=== PATIENT | female | born 2005 | race Caucasian/White ===

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

== ENCOUNTER 2025-03-03 17:23 | Emergency (ER) | payer OTHER, SELFPAY ==
--- NOTE | ~2025-03-03 | CT_ITS ---
EXAMINATION: CT abdomen pelvis w con DATE: 03/03/2025 21:34 INDICATION: L flank pain TECHNIQUE: Computed tomography (CT) of the abdomen and pelvis was performed with 100 mL Omnipaque-350 intravenous contrast. Automated exposure control and iterative reconstruction technique were employe d. The dose-length product was 666.16 mGy-cm. COMPARISON: 10/05/2023. FINDINGS: Lower thorax: Trace pericardial fluid. Liver: Normal. Biliary/Gallbladder: Gallbladder is normal. No bile duct dilation. Pancreas: No mass or duct dilation. Spleen: Normal. Adrenals:No mass. Kidneys: Delayed left nephrogram. Mild left pelviectasis, caliectasis and proximal ureterectasis, wit h mild urothelial hyperenhancement. 4 mm calcification in the proximal left ureter. No renal calcific ation. No suspicious renal mass. Normal right kidney. GI tract: Mild distal esophageal and gastric wall edema. Small hiatal hernia. No small or large bowel dilation. Normal appendix. Mesentery/Peritoneum: No ascites, mass, or free air. Retroperitoneum: No mass. Pelvis: Pelvic organs are within normal limits. 1.3 cm simple right ovarian cyst or dominant follicle . Soft Tissues: Soft tissues and body wall unremarkable. Bones: No acute osseous finding. IMPRESSION: Trace pericardial fluid. Mild esophagitis/gastritis. 4 mm stone in the proximal left ureter causing mild obstructive uropathy. Reviewed, dictated and finalized at location K.
--- NOTE | ~2025-03-03 | XR_ITS ---
XR abdomen/kub 1V Ordering provider: Scot Wray PA-C History: . stone protocol . Comparison: None. FINDINGS: BOWEL: Nonobstructive bowel gas pattern. ORGANOMEGALY: None. SIGNIFICANT PATHOLOGIC CALCIFICATIONS: None. OTHER: Contrast is seen in the urinary bladder, pelvic calyceal system and ureters with no dilatation of the ureters. No free air is seen under the diaphragm. IMPRESSION: NO ACUTE ABDOMINAL FINDINGS. Contrast seen in the urinary bladder, ureters and pelvic calyceal system bilaterally with slight hold ing of the contrast in the right ureter but no dilatation seen. Reviewed, dictated and finalized at location A. IMPRESSION: NO ACUTE ABDOMINAL FINDINGS. Contrast seen in the urinary bladder, ureters and pelvic calyceal system bilate rally with slight holding of the contrast in the right ureter but no dilatation seen.
--- OUTSIDE RECORDS SUMMARY | 2025-03-03 17:26 | XMS_ITS | Referral Summary ---
Author Organization [facility] Address [address] [place] [address] Care Team Providers Care Assistant Sales Center Manager Name Role Phone Maude Campbell MD Primary Care Provider Allergies Active Allergy Reactions Criticality Noted Date Comments Amoxicillin Rash Medium 03/07/2020 Medications Slynd tablet tablet Take 1 each (4 mg total) by mouth daily 10/16/2022 Active sertraline (ZOLOFT) 50 mg tablet Take 1 tablet (50 mg total) by mouth daily 90 tablet 4 11/07/2024 Active Active Problems Problem Noted Date Diagnosed Date Routine general medical exam ination at a health care facility 11/07/2024 Assessment & Plan (11/07/2024 8:27 AM RING BARKER OPERATOR): One of the best ways to improve or keep our health is 150 min of exercise per week (can be all cardio OR 90 min cardio with 2 strength training days). When doing Cardio we should be going at a pace that we would be mildly winded if trying to carry a conversation. Mediterranean Diet is also the healthiest diet to prevent high cholesterol, blood pressure, cardiovascular disease, diabetes, and memory loss. [facility] is a good source of information about this diet. Mediterranean Diet: Food List & Meal Plan ([facility]) https://my.[facility].org/health/articles/94065-xeqjvmaohraml-jrsu Recurrent major depression 10/20/2022 Venous malformation 03/10/2017 Overview (10/12/2022): onset , R lower extremity, with intermittent swelling and increasing pain 03/10/17 anticipatory guidance; recommend ASA 81mg QD, consult vascular imaging Resolved Problems Problem Noted Date Diagnosed Date Resolved Date CMV (cytomegalovirus infection) 01/13/2020 10/20/2022 Influenza 01/12/2020 10/12/2022 Assessment & Plan (01/12/2020 1:58 AM RING BARKER OPERATOR): Fever x1 week, cough x 4 days. Positive for influenza B on admission. - Oseltamivir 75 mg BID x 10 doses (01/11 pm - 18 am) - Tylenol/ibuprofen prn - Contact/droplet isolation - Flu shot on discharge Acute cystitis 01/12/2020 10/20/2022 Assessment & Plan (01/12/2020 1:43 AM RING BARKER OPERATOR): Dysuria and increased urinary frequency x1 week. Per family had testing indicative of UTI on 01/08 and was started on nitrofurantoin 100 mg po BID for 1 week. Still complaining of mild dysuria. UA on admission 3+ ketones, negative nitrites, LE, WBC. - Continue nitrofurantoin 100 mg po BID to finish 7 day course (01/08 - 01/14) - Follow up UA and urine culture from OSH - Follow urine culture from admission (pretreated) Fever 01/12/2020 10/12/2022 Assessment & Plan (01/12/2020 5:18 PM RING BARKER OPERATOR): 1 week of fever with tmax 102 F at home with concurrent UTI, influenza infection, and right knee swelling/pain. Physical exam unremarkable, pertinent negatives include no rash, lymphadenopathy, swelling, conjunctivitis, hepato/splenomegaly, mumur, polyarthritis. UTI would likely not be cause of these persistent fevers if culture was susceptible to nitrofurantoin and she had been treated for approximately 5 days. Positive for influenza B on admission, 1 week of fevers could be consistent with influenza although at the upper limit of normal. Other differentials for these fevers includes other nidus of infection such as PID, bartonella, endocarditis, Wayne, hepatitis, septic arthritis, resistant UTI, DVT/thrombophlebitis, HIV. Other considerations include LEDY, malignancy, IBD, Kawasaki disease, periodic fevers. - Monitor fever trend - Follow blood, urine cultures - G/C negative, monospot negative - HIV, RPR, EBV IgG/IgM, CMV IgG/IgM Assessment & Plan (01/12/2020 2:03 AM RING BARKER OPERATOR): 1 week of fever with tmax 102 F at home with concurrent UTI, influenza infection, and right knee swelling/pain. Physical exam unremarkable, pertinent negatives include no rash, lymphadenopathy, swelling, conjunctivitis, hepato/splenomegaly, mumur, polyarthritis. UTI would likely not be cause of these persistent fevers if culture was susceptible to nitrofurantoin and she had been treated for approximately 5 days. Positive for influenza B on admission, 1 week of fevers could be consistent with influenza although at the upper limit of normal. Other differentials for these fevers includes other nidus of infection such as PID, bartonella, endocarditis, Wayne, hepatitis, septic arthritis, resistant UTI, DVT/thrombophlebitis, HIV. Other considerations include LEDY, malignancy, IBD, Kawasaki disease, periodic fevers. - Monitor fever trend - Follow blood, urine cultures - G/C negative, monospot negative - HIV, RPR, EBV IgG/IgM, CMV IgG/IgM Reactive arthritis following genitourinary infection 01/12/2020 10/20/2022 Assessment & Plan (01/12/2020 5:19 PM RING BARKER OPERATOR): Secondary to prior UTI. Severino vaginitis 01/11/2020 10/20/2022 Assessment & Plan (01/12/2020 1:45 AM RING BARKER OPERATOR): Thick white discharge for several months with associated foul smell and pruritic vaginitis. Testing for STIs at PCP several weeks ago and on admission to [facility] (including BV, trich, G/C) negative. No suprapubic/pelvic tenderness. Likely severino vaginitis based on reported symptoms and will treat empirically. - Fluconazole 150 mg po once Immunizations Immunization Administration Dates Next Due DTaP 04/20/2006,200 5,04/08/2005,12/09 DTaP / IPV 10/29/2009 HPV9 02/06/2022,07/22/2020 Hep A, Pediatric 10/29/2009,10/25/2007, 7 Hep B, Adolescent or Pediatric 04/08/2005,2004,2004 Hib (PRP-D) 04/20/2006, 5,04/08/2005,12/09 IPV 05/06/2005,04/08/2005,2004 Influenza Virus Vaccine Trivalent 10/27/2023(Def erred: Patient Refused) Influenza, Quadrivalent, Spl it, Preservative Free, Intramuscular 10/27/2023,01/12/2020 Influenza, Trivalent, Preser vative Free, Intramuscular 11/07/2024 Influenza, Unspecified 11/07/2024(Deferr ed: Patient Refused),09/07/2022(Deferred: Patient Refused),08/31/2022(Deferred: Patient Refused),09/08/2021,10/25/2007, 007,12/15/2005 MMR 10/29/2009,12/15/2005 Meningococcal MCV4P (Menactra) 02/06/2022,2014 PPD TEST 12/15/2005 Pneumococcal Conjugate, Unspecified 11/29,05/06/2005,04/08/2005,12/09 Tdap 11/11/2015 Varicella 09/14/2008,04/20/2006 Social History Tobacco Use Types Packs/Day Years Used Date Smoking Tobacco: Never Smokeless Tobacco: Never Alcohol Use Standard Drinks/Week Comments Never 0 (1 standard drink = 0.6 oz pur e alcohol) AUDIT-C Answer Date Recorded Frequency of Alcohol Consumption Never 01/11/2020 Average Number of Drinks Not on file 020 Frequency of Binge Drinking Not on file 12/30 PHQ-2 Answer Date Recorded PHQ-2 Total Score (If total score is 3 or more points, staff should administer the PHQ-9) 4 11/07/2024 Comments No Sex and Gender Information Value Date Recorded Sex Assigned at Not on file Legal Sex Female 6:54 AM RING BARKER OPERATOR Gender Identity Not on file Sexual Orientation Not on file Last Filed Vital Signs Vital Sign Reading Time Taken Comments Blood Pressure 120/72 11/07/2024 8:17 AM RING BARKER OPERATOR Pulse 96 11/07/2024 8:17 AM RING BARKER OPERATOR Temperature 36.6 C (97.9 F) 11/07/2024 8:17 AM RING BARKER OPERATOR Respiratory Rate 20 01/12/2020 4:00 PM RING BARKER OPERATOR Oxygen Saturation 98% 11/07/2024 8:17 AM RING BARKER OPERATOR Inhaled Oxygen Concentration - - Weight 89.4 kg (197 lb) 11/07/2024 8:17 AM RING BARKER OPERATOR Height 158.8 cm (5' 2.5 ) 11/07/2024 8:17 AM RING BARKER OPERATOR Body Mass Index 35.46 11/07/2024 8:17 AM RING BARKER OPERATOR Plan of Treatment Not on file Procedures Procedure Name Priority Date/Time Associated Diagnosis Comments N. GONORRHOEAE/C. TRACHOMATIS AMPLIFICATION STAT 01/11/2020 2:46 PM RING BARKER OPERATOR from Last 3 Months or Most Recently Relevant to Health Maintenance Results * N. gonorrhoeae/C. trachomatis Amplification Vaginal (01/11/2020 2:46 PM RING BARKER OPERATOR) C. trachomatis Not Detected Not Detected [facility] Comment:Testing performed by : [facility], [address] [place] [address], [place]., [address] N. gonorrhoeae Not Detected Not Detected [facility] Comment: Interpretive Data Testing performed by the [facility]. This assay detects Chlamydia trachomatis and Neisseria gonorrhoeae by nucleic acid amplification testing (NAAT). This test is approved by the [place] Food and Drug Administration and the performance characteristics have been verified by the laboratory. The performance characteristics of this test have not been evaluated in individuals less than 14 years of age. Current Interpretive Data was last revised on 2019. Testing performed by: [facility], [address] [place] [address], [place] [address] Vaginal (None) 01/11/2020 2: 46 PM RING BARKER OPERATOR 01/11/2020 4:12 PM RING BARKER OPERATOR us Lino Burk MD LAB MICROBIOLOGY - GENER AL ORDERABLES Final Result [facility] [place] [address] from Last 3 Months or Most Recently Relevant to Health Maintenance Insurance IDPA Advance Directives For more information, please contact: [phone] * Full Code (Latest Code Status on File) Date Activated Date Inactivated Comments 01/11/2020 9:55 PM 01/12/2020 9:12 PM Care Teams Assistant Sales Center Manager Relationship Specialty Start Date End Date Maude Campbell MD [address] [place] [id number] PCP - General Internal Medicine 10/20/22
--- OUTSIDE RECORDS SUMMARY | 2025-03-03 17:26 | XMS_ITS | Clinical Summary ---
Author Organization [facility] Address [address] [place] [address] Care Team Providers Care Tool Honing Machine Set Up Operator Name Role Phone Maude Campbell MD Primary [...] 11/07/2024 Assessment & Plan (11/07/2024 8:27 AM COLLEGE ATHLETE): One of the best ways to improve [...] cardiovascular disease, diabetes, and memory loss. The [facility] is a good source of information about this diet. Mediterranean Diet: Food List & Meal Plan ([facility]) https://my.[facility].org/health/articles/36488-bmxavbwdtthgg-rfby Recurrent major depression 10/20/2022 Venous malformation 03/10/2017 Overview (10/12/2022): onset , R lower extremity, with intermittent swelling and increasing pain 03/10/17 anticipatory guidance; recommend ASA 81mg QD, consult vascular imaging Resolved Problems Problem Noted Date Diagnosed Date Resolved Date CMV (cytomegalovirus infection) 01/13/2020 10/20/2022 Influenza 01/12/2020 10/12/2022 Assessment & Plan (01/12/2020 1:58 AM COLLEGE ATHLETE): Fever x1 week, cough x 4 days. Positive for influenza B on admission. - Oseltamivir 75 mg BID x 10 doses (01/11 pm - 18 am) - Tylenol/ibuprofen prn - Contact/droplet isolation - Flu shot on discharge Acute cystitis 01/12/2020 10/20/2022 Assessment & Plan (01/12/2020 1:43 AM COLLEGE ATHLETE): Dysuria and increased urinary frequency x1 week. [...] 10/12/2022 Assessment & Plan (01/12/2020 5:18 PM COLLEGE ATHLETE): 1 week of fever with tmax 102 [...] of infection such as PID, bartonella, endocarditis, Logan, hepatitis, septic arthritis, resistant UTI, DVT/thrombophlebitis, HIV. Other considerations include LEDY, malignancy, IBD, Kawasaki disease, periodic fevers. - Monitor fever trend - Follow blood, urine cultures - G/C negative, monospot negative - HIV, RPR, EBV IgG/IgM, CMV IgG/IgM Assessment & Plan (01/12/2020 2:03 AM COLLEGE ATHLETE): 1 week of fever with tmax 102 [...] of infection such as PID, bartonella, endocarditis, Logan, hepatitis, septic arthritis, resistant UTI, DVT/thrombophlebitis, HIV. Other considerations include LEDY, malignancy, IBD, Kawasaki disease, periodic fevers. - Monitor fever trend - Follow blood, urine cultures - G/C negative, monospot negative - HIV, RPR, EBV IgG/IgM, CMV IgG/IgM Reactive arthritis following genitourinary infection 01/12/2020 10/20/2022 Assessment & Plan (01/12/2020 5:19 PM COLLEGE ATHLETE): Secondary to prior UTI. Severino vaginitis 01/11/2020 10/20/2022 Assessment & Plan (01/12/2020 1:45 AM COLLEGE ATHLETE): Thick white discharge for several months with associated foul smell and pruritic vaginitis. Testing for STIs at PCP several weeks ago and on admission to [facility] (including BV, trich, G/C) negative. No [...] Conjugate, Unspecified 11/29,05/06/2005,04/08/2005,12/09 Tdap 11/11/2015 Varicella 09/14/2008,04/20/2006 Surgical History Surgery Date Site/Laterality Comments OTHER SURGICAL HISTORY venous malformation Medical History Medical History Date Comments Venous malformation Family History Medical History Relation Name Comments Hypertension Father Hypertension Paternal Grandfather Atrial fibrillation Paternal Grandmother Rheum arthritis Paternal Grandmother Immunodeficiency Neg Hx Relation Name Status Comments Father Paternal Grandfather Paternal Grandmother Social History Tobacco Use Types Packs/Day Years [...] on file Legal Sex Female 6:54 AM COLLEGE ATHLETE Gender Identity Not on file Sexual Orientation Not on file Obstetrics History Last Filed Vital Signs Vital Sign Reading Time Taken Comments Blood Pressure 120/72 11/07/2024 8:17 AM COLLEGE ATHLETE Pulse 96 11/07/2024 8:17 AM COLLEGE ATHLETE Temperature 36.6 C (97.9 F) 11/07/2024 8:17 AM COLLEGE ATHLETE Respiratory Rate 20 01/12/2020 4:00 PM COLLEGE ATHLETE Oxygen Saturation 98% 11/07/2024 8:17 AM COLLEGE ATHLETE Inhaled Oxygen Concentration - - Weight 89.4 kg (197 lb) 11/07/2024 8:17 AM COLLEGE ATHLETE Height 158.8 cm (5' 2.5 ) 11/07/2024 8:17 AM COLLEGE ATHLETE Body Mass Index 35.46 11/07/2024 8:17 AM COLLEGE ATHLETE Plan of Treatment Health Maintenance Due Date Last Done Comments Hepatitis C Screening 2004 Meningococcal B Vaccine (1 o f 2 - Standard) 2020 Chlamydia and Gonorrhea (GC/ CT) Screening 01/11/2021 01/11/2020 HPV Vaccines (3 - 3-dose series) 05/01/2022 02/07/20 22, 07/22/2020 Covid-19 Vaccine (4 - 2023-2 5 season) 2024 11/27/2021, 02/22/2021, 02/01/2021 Depression Screening 11/07/2025 11/07/2024, 11/07/2024, 10/27/2023, Additional history exists Regular Well Visit/Exam 18-64 11/07/2025 11/07/2024, 10/27/2023 DTaP/Tdap/Td Vaccine (7 - Td or Tdap) 11/11/2025 11/11/2015, 10/29/2009, 04/20/2006, Additional history exists Hepatitis B Screening Completed 04/08/2005 , 2004, 2004 Pneumococcal vaccine <65 Completed 006, 05/06/2005, 04/08/2005, Additional history exists Varicella Vaccines Completed 09/14/2008, 04/20/2006 Meningococcal Vaccine Completed 02/06/2022, 12/14/2 015 Influenza Vaccine Completed 11/07/2024, , 09/08/2021, Additional history exists Procedures Procedure Name Priority Date/Time Associated Diagnosis Comments N. GONORRHOEAE/C. TRACHOMATIS AMPLIFICATION STAT 01/11/2020 2:46 PM COLLEGE ATHLETE from Last 3 Months or Most Recently Relevant to Health Maintenance Results * N. gonorrhoeae/C. trachomatis Amplification Vaginal (01/11/2020 2:46 PM COLLEGE ATHLETE) C. trachomatis Not Detected Not Detected [facility] Comment:Testing performed by : [facility], [address] [place] [address]., [id number] N. gonorrhoeae Not Detected Not Detected [facility] Comment: Interpretive Data Testing performed by the [facility]. This assay detects Chlamydia trachomatis [...] last revised on 2019. Testing performed by: [facility], [address] [place] [address]., [id number] Vaginal (None) 01/11/2020 2: 46 PM COLLEGE ATHLETE 01/11/2020 4:12 PM COLLEGE ATHLETE Lino Burk MD LAB MICROBIOLOGY - [facility] AL ORDERABLES Final Result [facility] Department [place] [address] from Last 3 Months or Most Recently Relevant to Health Maintenance [place] [place] [address] PLAN [facility] Advance Directives For more information, please contact: [phone] * Full Code (Latest Code Status on File) Date Activated Date Inactivated Comments 01/11/2020 9:55 PM 01/12/2020 9:12 PM Care Teams Tool Honing Machine Set Up Operator Relationship Specialty Start Date End Date Maude Campbell MD [address] [place] [id number] PCP - General Internal Medicine 10/20/22
[2025-03-03 17:37] VITALS: BP 140/84; PULSE 53; RESP 18; TEMP 36.4; O2SAT 100
--- NOTE | 2025-03-03 19:05 | ED_ITS ---
HPI - Female Genitourinary General Chief complaint: Urogenital-Female Stated complaint: L FLANK/SIDE PAIN HX KIDNEY STONES Time Seen by Provider: 03/03/25 18:52 Source: patient Mode of arrival: ambulatory Limitations: no limitations History of Present Illness HPI Narrative: This is a 19-year-old female who presents to the ED for chief complaint of sudden-onset left flank pain beginning around 16 30 today. Patient reports history of ureteral stones in the past and this feels similar. States that pain radiates from left flank into the left anterior abdomen. She is actively vomiting during the history taking. Reports several episodes of vomiting. Denies fevers, chills, GI bleeding symptoms, diarrhea, headache, neck pain. Related Data Home Medications ?Medication ?Instructions ?Recorded ?Confirmed ?Last Taken ?Type drospirenone (contraceptive) 4 mg 1 tablet PO DAILY 11/30/23 11/30/23 Unknown History (28) tablet (Slynd) sertraline 50 mg tablet 50 mg PO DAILY 11/30/23 11/30/23 Unknown History Allergies Allergy/AdvReac Type Severity Reaction Status Date / Time amoxicillin AdvReac Hives Verified 03/03/25 17:24 Review of Systems 2 Review of Systems: All systems as dictated in HPI Exam 2 Narrative: GENERAL: Appears in renal colic. HEAD: Normocephalic, atraumatic. EYES: PERRLA and EOMI. ENT: Nares clear, no rhinorrhea or epistaxis. Mucous membranes moist. Oropharynx without tonsillar hypertrophy exudate or other lesions. NECK: Supple. No adenopathy or masses. CHEST: No respiratory distress. Clear to auscultation. No wheezes rales or rhonchi HEART: Regular rate and rhythm. No murmur heard. Normal peripheral pulses. ABDOMEN: Left flank tenderness present. Negative right flank tenderness. Soft, otherwise nontender, nondistended, normal active bowel sounds. MSK: Normal range of motion. No edema. SKIN: Warm, dry, no rash. NEURO: Alert and oriented x4. No focal deficits. PSYCH: Normal mood and affect. Course Reevaluation(s) Reevaluation #1: Patient is feeling much improved. She feels ready to go home. I advised that I have spoke with the urologist on-call. She feels comfortable following up in clinic. Date: 03/03/25 Time: 23:08 Consultations Consultation #1: Spoke with Dr. Mcneill (Urology): He feels comfortable with patient going home today with strict return precautions. He would recommend starting on oral antibiotics well as the usual regimen for pain control and Flomax for stone. Recommends getting KUB. We will have patient follow up in clinic unless her symptoms are to worsen. Date: 03/03/25 Time: 23:08 Vital Signs Vital signs: Vital Signs Temperature 97.5 F L 03/03/25 17:37 Pulse Rate 53 L 03/03/25 17:37 Respiratory Rate 18 03/03/25 17:37 Blood Pressure 140/84 03/03/25 17:37 Pulse Oximetry 100 03/03/25 17:37 Oxygen Delivery Room Air 03/03/25 17:37 Temperature 97.5 F L 03/03/25 17:37 Pulse Rate 63 03/04/25 00:17 Respiratory Rate 17 03/04/25 00:17 Blood Pressure 131/84 03/04/25 00:17 Pulse Oximetry 99 03/04/25 00:17 Oxygen Delivery Room Air 03/03/25 17:37 MDM - Female Genitourinary MDM Narrative Medical decision making narrative: This is a 19 year old female who presents to the ED for chief complaint of left flank pain, nausea, vomiting. Vitals are normal. Exam remarkable for the above. She appears in renal colic on arrival. Lab work showing elevated white count of 17.4. Urinalysis shows blood and questionable infection with 11-20 whites and 1+ leuk esterase, however no nitrites. No fever to indicate over pyelonephritis. CMP is remarkable for mildly elevated anion gap and slightly low bicarb. CT abdomen pelvis with IV contrast: IMPRESSION: Trace pericardial fluid. Mild esophagitis/gastritis. 4 mm stone in the proximal left ureter causing mild obstructive uropathy. Discussed the case with Urology who is comfortable seeing the patient in clinic for follow-up. I did start the patient on Rocephin here in the ED for questionable UTI with the elevated white count, however I am more suspicious that the white count is more related to acute phase reaction with pain and vomiting. Her lactic acid is normal. She is well-appearing on re-evaluation after 1 round of pain meds. In abundance of caution, will prescribe antibiotics for potential UTI although she does not appear to have a septic stone. Rx for Flomax, Zofran, and pain medications given. Patient will be discharged in stable condition. Supportive measures discussed and strict return precautions given. Patient is understanding and agreeable with plan for discharge with urology follow-up. Lab Data 03/03/25 19:26 03/03/25 19:26 Labs: Lab Results 03/03/25 03/03/25 03/03/25 Range/Units 19:26 20:48 20:50 WBC 17.4 H (4.5-10.0) K/mm3 RBC 4.74 (4.2-5.4) M/mm3 Hgb 13.5 (12.0-15.0) g/dL Hct 41.0 (37.0-47.0) % MCV 86.5 (80-100) fl MCH 28.5 (26-34) pg MCHC 32.9 (32-36) g/dl RDW 12.3 (11.5-14.5) % Plt Count 261 (150-375) k/mm3 MPV 10.5 H (7.4-10.4) fl Immature Gran % (Auto) 0.7 H (0-0.5) % Neut % (Auto) 85.3 H (45.5-73.1) % Lymph % (Auto) 10.2 L (18.3-44.2) % Moca % (Auto) 3.4 (2.6-8.5) % Eos % (Auto) 0.1 (0-4.4) % Baso % (Auto) 0.3 (0.2-1.2) % Lymph # (Auto) 1.78 (0.9-3.2) K/mm3 Moca # (Auto) 0.6 (0.1-0.6) K/mm3 Eos # (Auto) 0.0 (0-0.3) K/mm3 Baso # (Auto) 0.1 (0.0-0.1) K/mm3 Abs Immat Gran (auto) 0.13 H (0.00-0.031) K/mm3 Absolute Neuts (auto) 14.9 H (1.3-6.7) K/mm3 Absolute Nucleated RBC 0.000 (0.0-0.012) K/mm3 Nucleated RBC % 0.0 (0.0-0.2) % Sodium 140 (137-145) mmol/L Potassium 3.7 (3.4-5.0) mmol/L Chloride 106 (98-107) mmol/L Carbon Dioxide 20 L (22-30) mmol/L Anion Gap 14 H (4-12) mmol/L BUN 19 H (7-17) mg/dL Creatinine 0.81 (0.7-1.0) mg/dL Estim Creat Clear Calc 101 ml/min Estimated GFR > 60 (59 - ) Glucose 110 (65-110) mg/dL Lactic Acid (0.7-2.0) mmol/L Calcium 9.5 (8.4-10.2) mg/dL Total Bilirubin 0.3 (0.2-1.3) mg/dL AST 24 (14-36) U/L ALT 20 (6-35) U/L Alkaline Phosphatase 79 (38-126) U/L Total Protein 8.0 (6.3-8.2) g/dL Albumin 4.8 (3.5-5.1) g/dL Lipase 69 (23-300) U/L Urine Color Light brown H (Yellow) Urine Appearance Turbid H (Clear) Urine pH 5.0 (5.0-9.0) Ur Specific [place] 1.024 (1.001-1.035) Urine Protein 2+ H (Negative) mg/dL Urine Glucose (UA) Negative (Negative) mg/dL Urine Ketones Negative (Negative) mg/dL Ur Blood (Man) 3+ H (Negative) Urine Nitrate Negative (Negative) Urine Bilirubin Negative (Negative) Urine Urobilinogen 0.2 (<2.0) mg/dL Add Ur Microanalysis Reviewed Leukocyte Esterase Rfl 1+ H (Negative) LISA/UL Urine RBC >100 H (0-2) /hpf Urine WBC 11-20 H (0-3) /hpf Ur Squamous Epith Cells Occasional (Few) /hpf Urine Bacteria None seen /hpf Urine Casts 6-10 POC Urine HCG, Qual Negative (Negative) /04/22 Range/Units 22:25 WBC (4.5-10.0) K/mm3 RBC (4.2-5.4) M/mm3 Hgb (12.0-15.0) g/dL Hct (37.0-47.0) % MCV (80-100) fl MCH (26-34) pg MCHC (32-36) g/dl RDW (11.5-14.5) % Plt Count (150-375) k/mm3 MPV (7.4-10.4) fl Immature Gran % (Auto) (0-0.5) % Neut % (Auto) (45.5-73.1) % Lymph % (Auto) (18.3-44.2) % Moca % (Auto) (2.6-8.5) % Eos % (Auto) (0-4.4) % Baso % (Auto) (0.2-1.2) % Lymph # (Auto) (0.9-3.2) K/mm3 Moca # (Auto) (0.1-0.6) K/mm3 Eos # (Auto) (0-0.3) K/mm3 Baso # (Auto) (0.0-0.1) K/mm3 Abs Immat Gran (auto) (0.00-0.031) K/mm3 Absolute Neuts (auto) (1.3-6.7) K/mm3 Absolute Nucleated RBC (0.0-0.012) K/mm3 Nucleated RBC % (0.0-0.2) % Sodium (137-145) mmol/L Potassium (3.4-5.0) mmol/L Chloride (98-107) mmol/L Carbon Dioxide (22-30) mmol/L Anion Gap (4-12) mmol/L BUN (7-17) mg/dL Creatinine (0.7-1.0) mg/dL Estim Creat Clear Calc ml/min Estimated GFR (59 - ) Glucose (65-110) mg/dL Lactic Acid 1.4 (0.7-2.0) mmol/L Calcium (8.4-10.2) mg/dL Total Bilirubin (0.2-1.3) mg/dL AST (14-36) U/L ALT (6-35) U/L Alkaline Phosphatase (38-126) U/L Total Protein (6.3-8.2) g/dL Albumin (3.5-5.1) g/dL Lipase (23-300) U/L Urine Color (Yellow) Urine Appearance (Clear) Urine pH (5.0-9.0) Ur Specific [place] (1.001-1.035) Urine Protein (Negative) mg/dL Urine Glucose (UA) (Negative) mg/dL Urine Ketones (Negative) mg/dL Ur Blood (Man) (Negative) Urine Nitrate (Negative) Urine Bilirubin (Negative) Urine Urobilinogen (<2.0) mg/dL Add Ur Microanalysis Leukocyte Esterase Rfl (Negative) LISA/UL Urine RBC (0-2) /hpf Urine WBC (0-3) /hpf Ur Squamous Epith Cells (Few) /hpf Urine Bacteria /hpf Urine Casts POC Urine HCG, Qual (Negative) Discharge Plan Discharge Clinical Impression: Calculus of proximal left ureter Patient Disposition: Home, Self-Care Condition: Stable Instructions: Antibiotic Form, Kidney Stones (ED) Additional Instructions: Exam today does show left-sided stone. Please take Flomax as prescribed. Use oxycodone for breakthrough pain. Use Tylenol and ibuprofen regularly for pain control every 6 hours. Follow-up with Urology. If you have any new or worsening symptoms please return to the ER for further evaluation. Patient Language: [place] Island[place] Prescriptions: New ibuprofen 600 mg tablet 600 mg PO Q6H PRN (Reason: pain) Qty: 30 0RF acetaminophen [Tylenol Extra Strength] 500 mg tablet 500 mg PO Q6H PRN (Reason: fever or pain) Qty: 30 0RF oxycodone 5 mg capsule 5 mg PO Q8H PRN (Reason: pain) Qty: 14 0RF tamsulosin [Flomax] 0.4 mg capsule 0.4 mg PO DAILY Qty: 10 0RF ondansetron 4 mg tablet,disintegrating 4 mg PO Q8H PRN (Reason: nausea and vomiting) Qty: 10 0RF No Action sertraline 50 mg tablet 50 mg PO DAILY Slynd 4 mg (28) tablet 1 tablet PO DAILY Follow-up/Referrals: Lucas Mcneill MD [Physician] - [place],Maude Chandler MD [Primary Care Provider] - Stand Alone Forms: Work/School Release IP Time of Disposition: 23:11
[2025-03-03 19:31] LABS: Basophils Absolute Auto 0.1 K/mm3 (0.0-0.1); Basophils Percent Auto 0.3 % (0.2-1.2); Eosinophils Percent Auto 0.1 % (0-4.4); Hemoglobin 13.5 g/dL (12.0-15.0); Immature Granulocyte Absolute 0.13 K/mm3 (0.00-0.031); Immature Granulocyte Percent A 0.7 % (0-0.5); Lymphocytes Absolute Auto 1.78 K/mm3 (0.9-3.2); Lymphocytes Percent Auto 10.2 % (18.3-44.2); Mean Corpuscular HGB Conc 32.9 g/dl (32-36); Mean Corpuscular Hemoglobin 28.5 pg (26-34); Mean Corpuscular Volume 86.5 fl (80-100); Mean Platelet Volume 10.5 fl (7.4-10.4); Monocytes Absolute Auto 0.6 K/mm3 (0.1-0.6); Monocytes Percent Auto 3.4 % (2.6-8.5); Neutrophils Absolute Auto 14.9 K/mm3 (1.3-6.7); Neutrophils Percent Auto 85.3 % (45.5-73.1); Platelet Count Result 261 k/mm3 (150-375); Red Blood Count 4.74 M/mm3 (4.2-5.4); Red Cell Distribution Width 12.3 % (11.5-14.5); White Blood Count 17.4 K/mm3 (4.5-10.0)
--- OUTSIDE RECORDS SUMMARY | 2025-03-03 19:31 | XMS_ITS | Clinical Summary ---
Author Organization [facility] Address [address] [place] [address] Care Team Providers Care Organ Assembler Name Role Phone Maude Campbell MD Primary [...] 11/07/2024 Assessment & Plan (11/07/2024 8:27 AM DRY ICE MACHINE OPERATOR): One of the best ways to [...] cardiovascular disease, diabetes, and memory loss. [facility] is a good source of information about this diet. Mediterranean Diet: Food List & Meal Plan ([facility]) https://my.[facility].org/health/articles/85345-agfppkaxagmwx-mmjl Recurrent major depression 10/20/2022 Venous malformation 03/10/2017 Overview (10/12/2022): onset , R lower extremity, with intermittent swelling and increasing pain 03/10/17 anticipatory guidance; recommend ASA 81mg QD, consult vascular imaging Resolved Problems Problem Noted Date Diagnosed Date Resolved Date CMV (cytomegalovirus infection) 01/13/2020 10/20/2022 Influenza 01/12/2020 10/12/2022 Assessment & Plan (01/12/2020 1:58 AM DRY ICE MACHINE OPERATOR): Fever x1 week, cough x 4 days. Positive for influenza B on admission. - Oseltamivir 75 mg BID x 10 doses (01/11 pm - 18 am) - Tylenol/ibuprofen prn - Contact/droplet isolation - Flu shot on discharge Acute cystitis 01/12/2020 10/20/2022 Assessment & Plan (01/12/2020 1:43 AM DRY ICE MACHINE OPERATOR): Dysuria and increased urinary frequency x1 [...] 10/12/2022 Assessment & Plan (01/12/2020 5:18 PM DRY ICE MACHINE OPERATOR): 1 week of fever with tmax [...] of infection such as PID, bartonella, endocarditis, Jennings, hepatitis, septic arthritis, resistant UTI, DVT/thrombophlebitis, HIV. Other considerations include LEDY, malignancy, IBD, Kawasaki disease, periodic fevers. - Monitor fever trend - Follow blood, urine cultures - G/C negative, monospot negative - HIV, RPR, EBV IgG/IgM, CMV IgG/IgM Assessment & Plan (01/12/2020 2:03 AM DRY ICE MACHINE OPERATOR): 1 week of fever with tmax [...] of infection such as PID, bartonella, endocarditis, Jennings, hepatitis, septic arthritis, resistant UTI, DVT/thrombophlebitis, HIV. Other considerations include LEDY, malignancy, IBD, Kawasaki disease, periodic fevers. - Monitor fever trend - Follow blood, urine cultures - G/C negative, monospot negative - HIV, RPR, EBV IgG/IgM, CMV IgG/IgM Reactive arthritis following genitourinary infection 01/12/2020 10/20/2022 Assessment & Plan (01/12/2020 5:19 PM DRY ICE MACHINE OPERATOR): Secondary to prior UTI. Severino vaginitis 01/11/2020 10/20/2022 Assessment & Plan (01/12/2020 1:45 AM DRY ICE MACHINE OPERATOR): Thick white discharge for several months with associated foul smell and pruritic vaginitis. Testing for STIs at PCP several weeks ago and on admission to [facility] (including BV, trich, G/C) negative. No suprapubic/pelvic [...] on file Legal Sex Female 6:54 AM DRY ICE MACHINE OPERATOR Gender Identity Not on file Sexual Orientation Not on file Obstetrics History Last Filed Vital Signs Vital Sign Reading Time Taken Comments Blood Pressure 120/72 11/07/2024 8:17 AM DRY ICE MACHINE OPERATOR Pulse 96 11/07/2024 8:17 AM DRY ICE MACHINE OPERATOR Temperature 36.6 C (97.9 F) 11/07/2024 8:17 AM DRY ICE MACHINE OPERATOR Respiratory Rate 20 01/12/2020 4:00 PM DRY ICE MACHINE OPERATOR Oxygen Saturation 98% 11/07/2024 8:17 AM DRY ICE MACHINE OPERATOR Inhaled Oxygen Concentration - - Weight 89.4 kg (197 lb) 11/07/2024 8:17 AM DRY ICE MACHINE OPERATOR Height 158.8 cm (5' 2.5 ) 11/07/2024 8:17 AM DRY ICE MACHINE OPERATOR Body Mass Index 35.46 11/07/2024 8:17 AM DRY ICE MACHINE OPERATOR Plan of Treatment Health Maintenance Due Date [...] GONORRHOEAE/C. TRACHOMATIS AMPLIFICATION STAT 01/11/2020 2:46 PM DRY ICE MACHINE OPERATOR from Last 3 Months or Most Recently Relevant to Health Maintenance Results * N. gonorrhoeae/C. trachomatis Amplification Vaginal (01/11/2020 2:46 PM DRY ICE MACHINE OPERATOR) C. trachomatis Not Detected Not Detected [facility] Comment:Testing performed by : [facility], [address] [place] [address]., [id number] N. gonorrhoeae Not Detected Not Detected [facility] Comment: Interpretive Data Testing performed by the [facility]. This assay detects Chlamydia trachomatis and [...] last revised on 2019. Testing performed by: [facility], [address] [place] [address]., [id number] Vaginal (None) 01/11/2020 2: 46 PM DRY ICE MACHINE OPERATOR 01/11/2020 4:12 PM DRY ICE MACHINE OPERATOR Lino Burk MD LAB MICROBIOLOGY - [facility] AL ORDERABLES Final Result [facility] Department [place] [address] from Last 3 Months or Most Recently Relevant to Health Maintenance [place] [address] [place] [address] PLAN [facility] Advance Directives For more information, please contact: [phone] * Full Code (Latest Code Status on File) Date Activated Date Inactivated Comments 01/11/2020 9:55 PM 01/12/2020 9:12 PM Care Teams Organ Assembler Relationship Specialty Start Date End Date Maude Campbell MD [address] [place] [address] [id number] PCP - General Internal Medicine 10/20/22
--- OUTSIDE RECORDS SUMMARY | 2025-03-03 19:31 | XMS_ITS | Referral Summary ---
Author Organization [facility] Address [address] [place] [address] Care Team Providers Care Curing Finisher Name Role Phone Maude Campbell MD Primary [...] 11/07/2024 Assessment & Plan (11/07/2024 8:27 AM VP ANALYTICS): One of the best ways to improve [...] cardiovascular disease, diabetes, and memory loss. The [facility] is a good source of information about this diet. Mediterranean Diet: Food List & Meal Plan ([email or web address]) [email or web address]-[email or web address]-[email or web address] Recurrent major depression 10/20/2022 Venous malformation 03/10/2017 Overview (10/12/2022): onset , R lower extremity, with intermittent swelling and increasing pain 03/10/17 anticipatory guidance; recommend ASA 81mg QD, consult vascular imaging Resolved Problems Problem Noted Date Diagnosed Date Resolved Date CMV (cytomegalovirus infection) 01/13/2020 10/20/2022 Influenza 01/12/2020 10/12/2022 Assessment & Plan (01/12/2020 1:58 AM VP ANALYTICS): Fever x1 week, cough x 4 days. Positive for influenza B on admission. - Oseltamivir 75 mg BID x 10 doses (01/11 pm - 18 am) - Tylenol/ibuprofen prn - Contact/droplet isolation - Flu shot on discharge Acute cystitis 01/12/2020 10/20/2022 Assessment & Plan (01/12/2020 1:43 AM VP ANALYTICS): Dysuria and increased urinary frequency x1 week. [...] 10/12/2022 Assessment & Plan (01/12/2020 5:18 PM VP ANALYTICS): 1 week of fever with tmax 102 [...] of infection such as PID, bartonella, endocarditis, Hinds, hepatitis, septic arthritis, resistant UTI, DVT/thrombophlebitis, HIV. Other considerations include LEDY, malignancy, IBD, Kawasaki disease, periodic fevers. - Monitor fever trend - Follow blood, urine cultures - G/C negative, monospot negative - HIV, RPR, EBV IgG/IgM, CMV IgG/IgM Assessment & Plan (01/12/2020 2:03 AM VP ANALYTICS): 1 week of fever with tmax 102 [...] of infection such as PID, bartonella, endocarditis, Hinds, hepatitis, septic arthritis, resistant UTI, DVT/thrombophlebitis, HIV. Other considerations include LEDY, malignancy, IBD, Kawasaki disease, periodic fevers. - Monitor fever trend - Follow blood, urine cultures - G/C negative, monospot negative - HIV, RPR, EBV IgG/IgM, CMV IgG/IgM Reactive arthritis following genitourinary infection 01/12/2020 10/20/2022 Assessment & Plan (01/12/2020 5:19 PM VP ANALYTICS): Secondary to prior UTI. Severino vaginitis 01/11/2020 10/20/2022 Assessment & Plan (01/12/2020 1:45 AM VP ANALYTICS): Thick white discharge for several months with associated foul smell and pruritic vaginitis. Testing for STIs at PCP several weeks ago and on admission to [facility] (including BV, trich, G/C) negative. No suprapubic/pelvic [...] on file Legal Sex Female 6:54 AM VP ANALYTICS Gender Identity Not on file Sexual Orientation Not on file Last Filed Vital Signs Vital Sign Reading Time Taken Comments Blood Pressure 120/72 11/07/2024 8:17 AM VP ANALYTICS Pulse 96 11/07/2024 8:17 AM VP [employer]LYT[facility] Temperature 36.6 C (97.9 F) 11/07/2024 8:17 AM VP ANALYT[facility] Respiratory Rate 20 01/12/2020 4:00 PM [facility] [employer] Oxygen Saturation 98% 11/07/2024 8:17 AM VP ANALYTICS Inhaled Oxygen Concentration - - Weight 89.4 kg (197 lb) 11/07/2024 8:17 AM VP ANALYT[facility] Height 158.8 cm (5' 2.5 ) 11/07/2024 8:17 AM VP ANALYTICS Body Mass Index 35.46 11/07/2024 8:17 AM VP ANALYTICS Plan of Treatment Not on file Procedures Procedure Name Priority Date/Time Associated Diagnosis Comments N. GONORRHOEAE/C. TRACHOMATIS AMPLIFICATION STAT 01/11/2020 2:46 PM [facility]LYT[facility] from Last 3 Months or Most Recently Relevant to Health Maintenance Results * N. gonorrhoeae/C. trachomatis Amplification Vaginal (01/11/2020 2:46 PM VP ANALYTICS) C. trachomatis Not Detected Not Detected [facility] Comment:Testing performed by : [facility], [address] [place] [address], [place]., [id number] N. gonorrhoeae Not Detected Not Detected [facility] Comment: Interpretive Data Testing performed by the [facility]. This assay detects Chlamydia trachomatis [...] last revised on 2019. Testing performed by: [facility], [address] [place] [address], [place] [address] Vaginal (None) 01/11/2020 2: 46 PM VP ANALYT[facility] 01/11/2020 4:12 PM VP [facility] us Lino Burk MD LAB MICROBIOLOGY - GENER AL ORDERABLES Final Result [facility] [place] [address] from Last 3 Months or Most Recently Relevant to Health Maintenance Insurance IDPA Advance Directives For more information, please contact: [phone] * Full Code (Latest Code Status on File) Date Activated Date Inactivated Comments 01/11/2020 9:55 PM 01/12/2020 9:12 PM Care Teams Curing Finisher Relationship Specialty Start Date End Date Maude Campbell MD [address] [place] [address] [id number] PCP - General Internal Medicine 10/20/22
[2025-03-03] MEDS: ONDANSETRON INJ 4 MG/2 ML VIAL IV PUSH (19:32)
[2025-03-03] MEDS: HYDROmorphone HCL INJ (*CRX) 1 MG/ML SYR 0.5 MG IV PUSH (19:33)
[2025-03-03 19:42] LABS: Alanine Aminotransferase 20 U/L (6-35); Albumin Level 4.8 g/dL (3.5-5.1); Alkaline Phosphatase 79 U/L (38-126); Anion Gap 14 mmol/L (4-12); Aspartate Amino Transferase 24 U/L (14-36); Bilirubin,Total 0.3 mg/dL (0.2-1.3); Blood Urea Nitrogen 19 mg/dL (7-17); Calcium 9.5 mg/dL (8.4-10.2); Carbon Dioxide 20 mmol/L (22-30); Chloride 106 mmol/L (98-107); Estimated CRCL calculation 101 ml/min; Estimated Glomerular Filt Rate > 60; Glucose 110 mg/dL (65-110); Lipase 69 U/L (23-300); Potassium 3.7 mmol/L (3.4-5.0); Sodium 140 mmol/L (137-145)
[2025-03-03 20:53] LABS: BEDSIDEPREGUCG Negative (Negative)
[2025-03-03 21:11] LABS: Add Urine Microscopic? YES; Appearance Urine Turbid (Clear); Bacteria Urine None Seen /hpf; Bilirubin Urine Negative (Negative); Blood Urine 3+ (Negative); Color Urine Light Brown (Yellow); Glucose Urine UA Negative (Negative); Ketones Urine Negative (Negative); Leukocyte Esterase Ur 1+ LEU/UL (Negative); Need Manual Microscopic Reviewed; Nitrate Urine Negative (Negative); Protein Urine 2+ mg/dL (Negative); RBC Urine >100 /hpf (0-2); Specific Grav Ur 1.024 (1.001-1.035); Squamous Epithelial Cell Urine Occasional /hpf (Few); Urobilinogen Urine 0.2 mg/dL (<2.0)
[2025-03-03 21:47] VITALS: BP 136/81; PULSE 64; RESP 19; O2SAT 98
[2025-03-03] MEDS: SODIUM CHLORIDE 0.9% IV 1,000 ML 999 ML IV CONT (22:23)
[2025-03-03 22:40] LABS: Lactic Acid Reflex 1.4 mmol/L (0.7-2.0)
[2025-03-04] MEDS: KETOROLAC 30 MG/ML VIAL (*BKC) IV PUSH
[2025-03-04 00:16] VITALS: BP 131/84; PULSE 63; RESP 17; O2SAT 99
[2025-03-04 00:17] VITALS: BP 131/84; PULSE 63; RESP 17; O2SAT 99
== END 2025-03-04 00:19 | disposition home or self-care (01) ==
PROVIDERS: Student in an Organized Health Care Education/Training Program; Emergency Provider Physician Assistant; PCP Internal Medicine
DX: N13.9 Obstructive and reflux uropathy, unspecified (principal); N20.1 Calculus of ureter; Z87.442 Personal history of urinary calculi; K20.90 Esophagitis, unspecified without bleeding; K29.70 Gastritis, unspecified, without bleeding
CPT/HCPCS: 36415; 74018; 74177; 80053; 81001; 81025; 83605; 83690; 85025; 87086; 96365; 96374; 96375; 99284; J0696; J1171; J1885; J2405; J7030; Q9967